=== PATIENT | female | born 1975 | race American Indian/Alaskan Native ===

== ENCOUNTER 2016-08-24 16:23 | Emergency (ER) | payer MEDICAID ==
[2016-08-24 16:40] VITALS: BP 148/67
[2016-08-24] MEDS ORDERED: PERCOCET 5/325 ONE (19:36)
[2016-08-24] MEDS ORDERED: PERCOCET 5/325 PO ONE (19:40)
--- NOTE | 2016-08-24 20:15 | Emergency Department Report ---
ED Lower Extremity HPI - General Chief Complaint: Extremity Problem,Nontraumatic Stated Complaint: PREV ACHILES SURGERY/SEVERE PAIN IN BACK OF LT L Time Seen by Provider: 08/24/16 19:46 Source: patient, family Mode of arrival: Wheelchair Limitations: No Limitations - History of Present Illness Initial Comments: Patient here reported that she has a history of left Achilles tendon repair in April 2016. She says she ruptured her Achilles tendon playing softball in February 2016. She said everything was fine and then 3 days ago she started experiencing ankle pain with some swelling. Describes the pain is 10 out of 10 and throbbing. She denies any numbness or tingling. Denies reinjuring her foot or ankle. Patient able walk. Patient reports that she saw her primary care physician and she was given referral for ankle and foot doctor but she has to wait awhile before they can see her. MD Complaint: other (left ankle pain) Onset/Timin -: days(s) Injury: Ankle: Left (left ankle and foot pain) Type of Injury: unknown, other (status post Achilles tendon repair in April 2016) Place: home Severity: severe Severity scale (0 -10): 10 Improves With: immobilization Worsens With: weight bearing, movement, palpation Context: other (status post surgery) Associated Symptoms: swelling, ambulatory. denies: snap/pop sensation, numbness , tingling Treatments Prior to Arrival: cold therapy - Related Data Previous Rx's Medication Instructions Recorded Last Taken Type HYDROcodone/APAP 5-325 [[place] 1 each PO Q6HR PRN #12 tablet 08/24/16 Unknown Rx 5/325] Ibuprofen [Motrin] 600 mg PO Q8H PRN #21 tablet 08/24/16 Unknown Rx Allergies Allergy/AdvReac Type Severity Reaction Status Date / Time Penicillins Allergy Hives Verified 08/24/16 16:35 shellfish derived Allergy Hives Verified 08/24/16 16:35 ED Review of Systems ROS: Stated complaint: PREV ACHILES SURGERY/SEVERE PAIN IN BACK OF LT L Other details as noted in HPI Comment: All other systems reviewed and negative Constitutional: denies: chills, fever Respiratory: no symptoms reported Cardiovascular: denies: chest pain, palpitations, edema, syncope Musculoskeletal: joint swelling, arthralgia Skin: denies: rash Neurological: denies: headache, weakness, numbness, paresthesias, confusion, abnormal gait, vertigo ED Past Medical Hx - Past Medical History Previous Medical History?: Yes Additional medical history: Left foot pain. Torn Achilles tendon - Surgical History Past Surgical History?: Yes Additional Surgical History: Left Achilles tendon repair, Tubaligation - Family History Family history: no significant - Social History Smoking Status: Current Every Day Smoker Substance Use Type: Alcohol, Marijuana, Prescribed - Medications Home Medications: Home Medications Medication Instructions Recorded Confirmed Last Taken Type HYDROcodone/APAP 5-325 [[place] 1 each PO Q6HR PRN #12 tablet 08/24/16 Unknown Rx 5/325] Ibuprofen [Motrin] 600 mg PO Q8H PRN #21 tablet 08/24/16 Unknown Rx ED Physical Exam - General Limitations: No Limitations General appearance: alert, in no apparent distress - Head Head exam: Present: atraumatic, normocephalic, normal inspection - Eye Eye exam: Present: normal appearance, PERRL, EOMI Pupils: Present: normal accommodation - Respiratory Respiratory exam: Present: normal lung sounds bilaterally. Absent: respiratory distress, chest wall tenderness - Cardiovascular Cardiovascular Exam: Present: regular rate, tachycardia, normal heart sounds - GI/Abdominal GI/Abdominal exam: Present: soft, normal bowel sounds. Absent: distended, tenderness, guarding, rebound, rigid - Extremities Exam Extremities exam: Present: full ROM, tenderness, normal capillary refill, joint swelling. Absent: pedal edema, calf tenderness - Expanded Lower Extremity Exam Left Hip exam: Present: normal inspection, full ROM, pelvic stability. Absent: tenderness, swelling, abrasion, laceration, ecchymosis, deformity, crepidus, dislocation, erythema, external rotation, internal rotation, shortening Upper Leg exam: Present: normal inspection, full ROM. Absent: tenderness, swelling, abrasion, laceration, ecchymosis, deformity, crepidus, dislocation, erythema Knee exam: Present: normal inspection, full ROM, full knee extension. Absent: tenderness, swelling, abrasion, laceration, ecchymosis, deformity, crepidus, dislocation, erythema, effusion, pain w/ pronation/supination, posterior draw sign, pain/laxity with valgus, pain/laxity with varus Lower Leg exam: Present: normal inspection, full ROM, Shin's sign. Absent: tenderness, swelling, abrasion, laceration, ecchymosis, deformity, crepidus, dislocation, erythema, palpable cord Ankle exam: Present: full ROM, tenderness, swelling. Absent: abrasion, laceration, ecchymosis, deformity, crepidus, dislocation, erythema Foot/Toe exam: Present: normal inspection, full ROM. Absent: tenderness, swelling, abrasion, laceration, ecchymosis, deformity, crepidus, dislocation, erythema, amputation, puncture wound, foreign body, calcaneal tenderness, tenderness at base of 5th metatarsal, nail avulsion, subungual hematoma Neuro vascular tendon exam: Present: no vascular compromise. Absent: pulse deficit, abnormal cap refill, motor deficit, sensory deficit, tendon deficit ( negative calf squeeze test.), extremity cold to touch, pallor, abnormal 2-point discrimination, decreased fine/light touch, foot drop, peroneal nerve deficit, significant pain with passive ROM of distal joint Gait: Positive: observed and limited by pain - Back Exam Back exam: Present: normal inspection, full ROM. Absent: CVA tenderness (L), muscle spasm, paraspinal tenderness, vertebral tenderness, rash noted - Neurological Exam Neurological exam: Present: alert, oriented X3, abnormal gait (patient minimal improvement to left lower extremity due to swelling and pain), reflexes normal - Psychiatric Psychiatric exam: Present: normal affect, normal mood - Skin Skin exam: Present: dry, intact, normal color. Absent: rash ED Course Vital Signs 08/24/16 16:36 Temperature 98.1 F Pulse Rate 103 H Respiratory 20 Rate Blood Pressure 148/67 O2 Sat by Pulse 99 Oximetry - Reevaluation(s) Reevaluation #1: 08/24/16 20:21 given Percocet 5/325 2 tablets in emergency room for pain. - Orthopedic Splinting/Casting Injury #1 Side: left Lower Extremity Injury Location: ankle Lower Extremity Immobilizer: stirrup splint Other Orthopedic Equipment: crutches ED Lower Extremity MDM - Medical Decision Making ED course: See procedure note for details. Patient status post Achilles tendon repair to left lower extremity. After examination, I explained to patient that she will need to see orthopedic doctor for possible MRI. She did not reinjure decides and calf squeeze test did not suggest that patient have any further damage to her Achilles tendon. I also collaborated with DR Randhawa on patient presentation. It was agreed upon that patient can be discharged home with pain medication, ankle stirrup and crutches and follow-up with orthopedic doctor. Patient was given Percocet 2 tablets 5/325 mg in emergency room to manage pain. She voiced reduction of pain. Patient agreed with discharge plan and discharged home with prescription for [place] and Motrin. Critical care attestation.: If time is entered above; I have spent that time in minutes in the direct care of this critically ill patient, excluding procedure time. ED Disposition Clinical Impression: Arthralgia of left ankle Disposition: DISCHARGED TO HOME OR SELFCARE Is pt being admited?: No Does the pt Need Aspirin: No Condition: Stable Instructions: Arthralgia (ED), Ankle Stirrup Splint (ED), Ankle Exercises (GEN) Additional Instructions: Please do not drive or operate any heavy machinery while taking [place] as this will cause drowsiness. Followup orthopedic in 2 days. Prescriptions: Ibuprofen [Motrin] 600 mg PO Q8H PRN #21 tablet PRN Reason: Pain HYDROcodone/APAP 5-325 [[place] 5/325] 1 each PO Q6HR PRN #12 tablet PRN Reason: Pain Referrals: PRIMARY CARE, [Primary Care Provider] - 2-3 Days AMANDA COYNE MD [Staff Physician] - 08/26/16 Forms: Accompanied Note, Work/School Release Form(ED)
== END 2016-08-24 20:28 | disposition home or self-care (01) ==
LOC: ED 16:23
DX: M25.572 Pain in left ankle and joints of left foot (principal); F17.200 Nicotine dependence, unspecified, uncomplicated; F12.10 Cannabis abuse, uncomplicated